=== PATIENT | female | born 1985 ===

== ENCOUNTER 2016-12-24 20:08 | Emergency (ER) | payer SELFPAY ==
[2016-12-24 20:20] VITALS: BP 100/52; PULSE 95; RESP 16; TEMP 98.9; O2SAT 99
--- NOTE | 2016-12-24 20:56 | ED PDOC ---
HPI: Back Time Seen by Provider: 12/24/16 20:24 Chief Complaint (Nursing): Back Pain Chief Complaint (Provider): Back Pain History Per: Patient Additional Complaint(s): 31 yo female, no PMH, presents to ED with complaints of pain to her neck and lower back x 3 weeks, worse with movement and upon palpation. Patient has never medicated for symptoms thus far. Patient denies any injury. No fever or chills. Past Medical History Reviewed: Historical Data, Nursing Documentation, Vital Signs Vital Signs: Last Vital Signs Temp 98.9 F 12/24/16 20:16 Pulse 95 H 12/24/16 20:16 Resp 16 12/24/16 20:16 BP 100/52 L 12/24/16 20:16 Pulse Ox 99 12/24/16 20:16 - Medical History PMH: No Chronic Diseases - Surgical History Surgical History: No Surg Hx - Family History Family History: States: Unknown Family Hx - Living Arrangements Living Arrangements: With Family - Social History Current smoker - smoking cessation education provided: No Alcohol: None Drugs: Denies - Home Medications Home Medications: Ambulatory Orders Medication Instructions Recorded Albuterol HFA [Ventolin HFA 90 2 puff IH Q4H #1 puff 07/16/15 mcg/actuation (8 g)] Azithromycin [Zithromax] 250 mg PO DAILY #6 tablet 07/16/15 Cyclobenzaprine [Cyclobenzaprine 10 mg PO TID #10 tab 07/16/15 HCl] Cyclobenzaprine [Cyclobenzaprine 10 mg PO TID #20 tab 12/24/16 HCl] Ibuprofen [Motrin] 600 mg PO Q6 #20 tab 12/24/16 - Allergies Allergies/Adverse Reactions: Allergies Allergy/AdvReac Type Severity Reaction Status Date / Time No Known Allergies Allergy Verified 11/24/15 20:56 Review of Systems ROS Statement: Except As Marked, All Systems Reviewed And Found Negative Musculoskeletal: Positive for: Neck Pain, Back Pain Physical Exam - Reviewed Nursing Documentation Reviewed: Yes Vital Signs Reviewed: Yes - Physical Exam Appears: Positive for: Well, Non-toxic, No Acute Distress Head Exam: Positive for: ATRAUMATIC, NORMAL INSPECTION, NORMOCEPHALIC Skin: Positive for: Normal Color, Warm, DRY Eye Exam: Positive for: EOMI, Normal appearance, PERRL ENT: Positive for: Normal ENT Inspection Neck: Positive for: Normal, Painless ROM (cervical paraspinal tenderness) Cardiovascular/Chest: Positive for: Regular Rate, Rhythm Respiratory: Positive for: CNT, Normal Breath Sounds Gastrointestinal/Abdominal: Positive for: Normal Exam, Bowel Sounds, Soft Back: Positive for: Normal Inspection, Muscle Spasm (ls paraspinal tenderness). Negative for: Vertebral Tenderness Extremity: Positive for: Normal ROM Neurologic/Psych: Positive for: Alert, Oriented - ECG O2 Sat by Pulse Oximetry: 99 Medical Decision Making Medical Decision Making: Pt requesting XRs C-Spine and LS Spine reviewed: NAD, as read by PA-C Pt medicated with Motrin and Flexeril, reports feeling improved on re-eval. Pt medicated with Zodean ODT as well, bc she notes getting nauseous after taking medications Disposition - Clinical Impression Clinical Impression: Back pain - Patient ED Disposition Is Patient to be Admitted: No - Disposition Disposition: Routine/Home Disposition Time: 23:11 Condition: STABLE Prescriptions: Cyclobenzaprine [Cyclobenzaprine HCl] 10 mg PO TID #20 tab Ibuprofen [Motrin] 600 mg PO Q6 #20 tab Instructions: Back Pain (ED) Forms: [employer] (Yemeni)
--- NOTE | 2016-12-25 13:51 | RAD ---
PROCEDURE: Cervical Spine Radiographs. HISTORY: Pain. COMPARISON: None. FINDINGS: BONES: Mild straightening of the upper cervical curvature. No fracture. Dens Intact. DISC SPACES: Normal. SOFT TISSUES: Normal. No prevertebral soft tissue swelling. OTHER FINDINGS: None. IMPRESSION: Mild straightening of the upper cervical curvature. Exam is otherwise unremarkable. If symptoms persist or worsen follow-up CT or MRI may be considered.
--- NOTE | 2016-12-25 13:55 | RAD ---
PROCEDURE: Radiographs of the Lumbar Spine. HISTORY: pain COMPARISON: No prior. FINDINGS: BONES: There is mild straightening of the lumbar curvature and there is questionable dextroscoliotic lumbar deformity, minimal. No listhesis. No fracture. DISC SPACES: Unremarkable. OTHER FINDINGS: None. IMPRESSION: Borderline disc scoliosis with straightening curvature noted in the anterior-posterior plane. No fracture or spondylolisthesis. Vertebral body and disc interspace heights appear normal. Further characterization can provided by MRI if warranted.
== END 2016-12-24 23:20 | disposition home or self-care (01) ==
LOC: H.ER 20:08
DX: M54.9 Dorsalgia, unspecified (principal); M54.2 Cervicalgia; R11.0 Nausea

== ENCOUNTER 2017-12-16 18:28 | Emergency (ER) | payer OTHER ==
[2017-12-16 18:37] VITALS: BP 116/83; PULSE 98; RESP 16; TEMP 98.6; O2SAT 99
--- NOTE | 2017-12-16 20:09 | ED PDOC ---
HPI: General Adult Time Seen by Provider: 12/16/17 19:01 Chief Complaint (Nursing): Abdominal Pain Chief Complaint (Provider): Frontal headache, sinus pressure, body ache and fever History Per: Patient History/Exam Limitations: no limitations Onset/Duration Of Symptoms: Days Current Symptoms Are (Timing): Still Present Additional Complaint(s): 32 year old female presents to the ER for an evaluation of frontal headache, sinus pressure, body aches, fever and chills. Patient states her last fever was 2 days ago with T-max of 100.7 F. Also reports her has similar symptoms. She denies recent travel, cough, sore throat, neck stiffness, sweats or weight loss. Past Medical History Reviewed: Historical Data, Nursing Documentation, Vital Signs Vital Signs: Last Vital Signs Temp 98.6 F 12/16/17 18:34 Pulse 98 H 12/16/17 18:34 Resp 16 12/16/17 18:34 BP 116/83 12/16/17 18:34 Pulse Ox 99 12/16/17 18:34 - Medical History PMH: Chronic Pain (neck) - Family History Family History: States: Unknown Family Hx - Social History Current smoker - smoking cessation education provided: No Alcohol: None Drugs: Denies - Home Medications Home Medications: Ambulatory Orders Medication Instructions Recorded Azithromycin [Zithromax] 250 mg PO DAILY #6 tablet 07/16/15 Cyclobenzaprine [Cyclobenzaprine 10 mg PO TID #10 tab 07/16/15 HCl] RX: Albuterol HFA [Ventolin HFA 90 2 puff IH Q4H #1 puff 07/16/15 mcg/actuation (8 g)] Cyclobenzaprine [Cyclobenzaprine 10 mg PO TID #20 tab 12/24/16 HCl] Ibuprofen [Motrin] 600 mg PO Q6 #20 tab 12/24/16 Amoxicillin/Clavulanate [Augmentin 1 tab PO BID 7 Days #14 tab 12/16/17 875 MG-125 MG] Fluticasone Propionate [Flonase] 1 spr NS DAILY #1 bottle 12/16/17 RX: Ibuprofen [Motrin Tab] 600 mg PO Q6 #30 tab 12/16/17 RX: predniSONE [predniSONE Tab] 60 mg PO DAILY #9 tab 12/16/17 - Allergies Allergies/Adverse Reactions: Allergies Allergy/AdvReac Type Severity Reaction Status Date / Time No Known Allergies Allergy Verified 11/24/15 20:56 Review of Systems ROS Statement: Except As Marked, All Systems Reviewed And Found Negative Constitutional: Positive for: Fever, Chills, Other (body aches). Negative for: Sweats, Weight loss ENT: Positive for: Nose Pain. Negative for: Throat Pain Respiratory: Negative for: Cough Musculoskeletal: Negative for: Neck Pain Neurological: Positive for: Headache (frontal) Physical Exam - Reviewed Nursing Documentation Reviewed: Yes Vital Signs Reviewed: Yes - Physical Exam Appears: Positive for: Non-toxic, No Acute Distress Head Exam: Positive for: ATRAUMATIC, NORMAL INSPECTION, NORMOCEPHALIC Skin: Positive for: Normal Color, Warm, Dry. Negative for: Rash Eye Exam: Positive for: EOMI, Normal appearance, PERRL ENT: Positive for: Sinus Pain/Drainage (positive for maxillary and ethmoid sinusitis) Neck: Positive for: Normal, Painless ROM, Supple. Negative for: Decreased ROM Cardiovascular/Chest: Positive for: Regular Rate, Rhythm. Negative for: Murmur Respiratory: Positive for: Normal Breath Sounds. Negative for: Decreased Breath Sounds, Wheezing, Respiratory Distress Gastrointestinal/Abdominal: Positive for: Normal Exam, Soft. Negative for: Tenderness, Guarding, Rebound Back: Positive for: Normal Inspection. Negative for: L CVA Tenderness, R CVA Tenderness Extremity: Positive for: Normal ROM. Negative for: Tenderness, Pedal Edema, Deformity Neurologic/Psych: Positive for: Alert, Oriented (x3), Gait (steady). Negative for: Motor/Sensory Deficits - ECG O2 Sat by Pulse Oximetry: 99 (RA) Pulse Ox Interpretation: Normal Medical Decision Making Medical Decision Making: Time: 1917 A/P: 32 year old well-appearing female presents with sinus pain and body pain. Patient has normal vitals. Initial Plan: --Motrin 600mg --Prednisone Tab 40mg Explained to the patient she has sinusitis and recommended treatment with steroid. Advised to take Augmentin medication ONLY if symptoms persist beyond 2- 3 days or if high fever and return to ER if symptoms persist or worsen. Upon provider reevaluation patient is feeling better, is medically stable, and requires no further treatment in the ED at this time. Patient will be discharged with Augmentin, Flonase, Motrin 600mg, Prednisone 60mg for sinusitis. Counseling was provided and all questions were answered regarding diagnosis and need for follow up with [facility]. Scribe Attestation: Documented by, Ann-Marie Greenberg acting as a scribe for Dalton Goncalves MD Provider Scribe Attestation: All medical record entries made by the Scribe were at my direction and personally dictated by me. I have reviewed the chart and agree that the record accurately reflects my personal performance of the history, physical exam, medical decision making, and the department course for this patient. I have also personally directed, reviewed, and agree with the discharge instructions and disposition. Disposition - Clinical Impression Clinical Impression: Sinusitis - Patient ED Disposition Is Patient to be Admitted: No - Disposition Referrals: [facility] [Outside] Disposition: Routine/Home Disposition Time: 19:22 Condition: STABLE Prescriptions: Amoxicillin/Clavulanate [Augmentin 875 MG-125 MG] 1 tab PO BID 7 Days #14 tab Fluticasone Propionate [Flonase] 1 spr NS DAILY #1 bottle RX: Ibuprofen [Motrin Tab] 600 mg PO Q6 #30 tab RX: predniSONE [predniSONE Tab] 60 mg PO DAILY #9 tab Instructions: Sinusitis in Adults Forms: [employer] (Tai[place]ese)
== END 2017-12-16 19:40 | disposition home or self-care (01) ==
LOC: H.ER 18:28
DX: J32.9 Chronic sinusitis, unspecified (principal)

== ENCOUNTER 2018-05-04 21:53 | Emergency (ER) | payer SELFPAY ==
[2018-05-04 22:00] VITALS: RESP 16
[2018-05-04] MEDS ORDERED: Sodium Chloride 0.9% 1,000 ML IV STA (22:43)
[2018-05-04 23:42] LABS: BASO % 0.3 % (0.0-2.0); EOS % 0.3 % (0.0-4.0); HEMOGLOBIN 11.9 g/dL (12.0-16.0); LYMPH # 1.6 K/uL (1.0-4.3); MEAN CELL VOLUME 81.1 fl (81.0-99.0); MEAN CORPUSCULAR HGB CONC 33.3 g/dL (33.0-37.0); MEAN PLATELET VOLUME 7.4 fl (7.2-11.7); MONO # 0.8 K/uL (0.0-0.8); MONO % 7.4 % (0.0-10.0); NEUT # 8.5 K/uL (1.8-7.0); NRBC % 0.1 % (0.0-0.0); RBC 4.41 Mil/uL (3.80-5.20); RED CELL DISTRIBUTION WIDTH 12.8 % (11.5-14.5)
[2018-05-04 23:51] LABS: SQUAMOUS EPITHIAL 4 /hpf (0-5); URINE BILIRUBIN NEGATIVE (NEGATIVE); URINE BLOOD NEGATIVE (NEGATIVE); URINE CLARITY SLIGHTY-CLOUDY (Clear); URINE COLOR STRAW (YELLOW); URINE GLUCOSE (UA) NEG (NEGATIVE); URINE LEUKOCYTE ESTERASE TRACE Leu/uL (Negative); URINE PROTEIN NEGATIVE (NEGATIVE); URINE UROBILINOGEN 0.2-1.0 mg/dL (0.2-1.0)
[2018-05-04 23:53] LABS: ALB/GLOB RATIO 1.1 (1.0-2.1); ALBUMIN 4.3 g/dL (3.5-5.0); BLOOD UREA NITROGEN 6 mg/dl (7-17); CALCIUM 9.3 mg/dL (8.4-10.2); GFR NON-AFRICAN AMERICAN > 60
[2018-05-04 23:58] LABS: ALT/SGPT 40 U/L (9-52); AST/SGOT 53 U/L (14-36)
--- NOTE | 2018-05-05 00:08 | ED PDOC ---
HPI: General Adult Time Seen by Provider: 05/04/18 22:11 Chief Complaint (Nursing): ENT Problem Chief Complaint (Provider): ENT Problem History Per: Patient History/Exam Limitations: no limitations Onset/Duration Of Symptoms: Days (5) Current Symptoms Are (Timing): Still Present Additional Complaint(s): 32 year old female presents to the ED for an evaluation of worsening symptoms onset for 5 days. Patient had a dental procedure last week. On Sunday, she had sore throat and went to the doctor and was prescribed with Amoxicillin. Patient has pain and drainage from the eyes and was diagnosed with eye infection and prescribed eye drops. She has pain with urination and unable to tolerate PO. Yesterday, she had ear pain that was worse on the right ear compared to the left. PMD: Non [facility] Provider Past Medical History Reviewed: Historical Data, Nursing Documentation, Vital Signs Vital Signs: Last Vital Signs Temp 101.2 F H 05/04/18 22:20 Pulse 115 H 05/04/18 21:59 Resp 16 05/04/18 21:59 BP 111/77 05/04/18 21:59 Pulse Ox 98 05/04/18 21:59 - Medical History PMH: Chronic Pain (neck) - Family History Family History: States: Unknown Family Hx - Home Medications Home Medications: Ambulatory Orders Medication Instructions Recorded Albuterol HFA [Ventolin HFA 90 2 puff IH Q4H #1 puff 07/16/15 mcg/actuation (8 g)] Azithromycin [Zithromax] 250 mg PO DAILY #6 tablet 07/16/15 Cyclobenzaprine [Cyclobenzaprine 10 mg PO TID #10 tab 07/16/15 HCl] Cyclobenzaprine [Cyclobenzaprine 10 mg PO TID #20 tab 12/24/16 HCl] Ibuprofen [Motrin] 600 mg PO Q6 #20 tab 12/24/16 Amoxicillin/Clavulanate [Augmentin 1 tab PO BID 7 Days #14 tab 12/16/17 875 MG-125 MG] Fluticasone Propionate [Flonase] 1 spr NS DAILY #1 bottle 12/16/17 Ibuprofen [Motrin Tab] 600 mg PO Q6 #30 tab 12/16/17 predniSONE [predniSONE Tab] 60 mg PO DAILY #9 tab 12/16/17 - Allergies Allergies/Adverse Reactions: Allergies Allergy/AdvReac Type Severity Reaction Status Date / Time No Known Allergies Allergy Verified 05/04/18 21:57 Review of Systems ROS Statement: Except As Marked, All Systems Reviewed And Found Negative Eyes: Positive for: Pain, Other (drainage ) ENT: Positive for: Ear Pain, Throat Pain Cardiovascular: Negative for: Chest Pain Gastrointestinal: Negative for: Abdominal Pain Genitourinary Female: Positive for: Dysuria Physical Exam - Reviewed Nursing Documentation Reviewed: Yes Vital Signs Reviewed: Yes - Physical Exam Appears: Negative for: Well (Lethargic; weak) Head Exam: Positive for: ATRAUMATIC, NORMAL INSPECTION, NORMOCEPHALIC Skin: Positive for: Normal Color, Warm, Dry. Negative for: Rash Eye Exam: Positive for: Other (Conjunctiva erythematous bilateral with bilateral clear drainage) ENT: Positive for: Normal ENT Inspection Neck: Positive for: Normal, Painless ROM Cardiovascular/Chest: Positive for: Regular Rate, Rhythm. Negative for: Murmur Respiratory: Positive for: Normal Breath Sounds. Negative for: Decreased Breath Sounds, Respiratory Distress Gastrointestinal/Abdominal: Positive for: Tenderness (Suprapubic ) Back: Positive for: Normal Inspection Extremity: Positive for: Normal ROM. Negative for: Tenderness, Pedal Edema, Deformity Neurologic/Psych: Positive for: Alert, Oriented (x3) - Laboratory Results Result Diagrams: 05/04/18 23:25 05/04/18 23:25 Lab Results: Total Bilirubin 0.4 mg/dl (0.2-1.3) 05/04/18 23:25 AST 53 U/L (14-36) H 05/04/18 23:25 ALT 40 U/L (9-52) 05/04/18 23:25 Alkaline Phosphatase 81 U/L (38-126) 05/04/18 23:25 Total Protein 8.2 G/DL (6.3-8.2) 05/04/18 23:25 Albumin 4.3 g/dL (3.5-5.0) 05/04/18 23:25 Globulin 3.8 gm/dL (2.2-3.9) 05/04/18 23:25 Albumin/Globulin Ratio 1.1 (1.0-2.1) 05/04/18 23:25 Urine Color Straw (YELLOW) 05/04/18 23:25 Urine Clarity Slighty-cloudy (Clear) 05/04/18 23:25 Urine pH 8.0 (5.0-8.0) 05/04/18 23:25 Ur Specific [place] 1.011 (1.003-1.030) 05/04/18 23: Urine Protein Negative mg/dL (NEGATIVE) 05/04/18 23:25 Urine Glucose (UA) Neg mg/dL (NEGATIVE) 05/04/18 23: Urine Ketones Negative mg/dL (NEGATIVE) 05/04/18 23: Urine Blood Negative (NEGATIVE) 05/04/18 23:25 Urine Nitrate Negative (NEGATIVE) 05/04/18 23: Urine Bilirubin Negative (NEGATIVE) 05/04/18 23: Urine Urobilinogen 0.2-1.0 mg/dL (0.2-1.0) 05/04/18 23:25 Ur Leukocyte Esterase Trace Heather/uL (Negative) 05/04/18 23:25 Urine RBC (Auto) 1 /hpf (0-3) 05/04/18 23:25 Urine Microscopic WBC 5 /hpf (0-5) 05/04/18 23:25 Ur Squamous Epith Cells 4 /hpf (0-5) 05/04/18 23:25 - ECG O2 Sat by Pulse Oximetry: 98 (RA) Pulse Ox Interpretation: Normal Medical Decision Making Medical Decision Making: Time: 2219 Impression: multiple complaints including pain to ear, throat, conjunctiva and pain with urination. Will send labs including throat culture, out of windows for Tamiflu so will not test for flu, Motrin for fever, UA, IV fluids and reassess patient Plan: Venous blood gas shock panel CMP CBC w/ differential Ibuprofen 800mg Normal saline 1000 mls/hr Rapid strep UA Reevaluation Scribe Attestation: Documented by Ann-Marie Greenberg, acting as a scribe for Violeta Abernathy MD Provider Scribe Attestation: All medical record entries made by the Scribe were at my direction and personally dictated by me. I have reviewed the chart and agree that the record accurately reflects my personal performance of the history, physical exam, medical decision making, and the department course for this patient. I have also personally directed, reviewed, and agree with the discharge instructions and disposition. Disposition - Disposition Forms: [employer] (Russian)
[2018-05-05] MEDS ORDERED: Dexamethasone 12 MG in Sodium Chloride 0.9% 50 ML IV STA (01:39)
[2018-05-05] MEDS ORDERED: Dexamethasone 4 mg/1 ml ONE (02:51)
[2018-05-05 05:02] VITALS: BP 94/60; PULSE 78; TEMP 98.1; O2SAT 99
[2018-05-05 14:45] LABS: VENOUS BLOOD GAS BASE EXCESS 4.7 mmol/L (0.0-2.0); VENOUS BLOOD GAS PCO2 48 mmHg (40-60); VENOUS BLOOD GAS PO2 32 mm/Hg (30-55); VENOUS BLOOD PH 7.41 (7.32-7.43)
== END 2018-05-05 05:10 | disposition home or self-care (01) ==
LOC: H.ER 21:53
DX: G89.29 Other chronic pain (principal)
CPT/HCPCS: 80053; 81003; 81025; 82803; 85025; 87070; 87430; 99284; J1100; J7030